=== PATIENT | female | born 1980 | race African-American/Black ===

== ENCOUNTER 2016-10-15 20:08 | Emergency (ER) | payer OTHER ==
[2016-10-15 20:15] VITALS: BP 119/63; PULSE 86; TEMP 97.2; BMI 29.2
[2016-10-15 20:34] LABS: BASOPHIL 0.7 % (0-2.0); EOSINOPHIL 1.3 % (0-4.5); MCH 25.4 pg (25.7-33.7); MCHC 32.1 g/dl (32.0-36.0); MEAN CELL VOLUME 79.3 fl (80-96); MEAN PLT VOLUME 9.3 fl (7.5-11.1); NEUTROPHILS 47.3 % (42.8-82.8); PLATELET COUNT 188 K/MM3 (134-434); RDW 15.6 % (11.6-15.6); WHITE BLOOD COUNT 5.2 K/mm3 (4.0-10.0)
--- NOTE | 2016-10-15 20:58 | PDOC ---
History of Present Illness - General History Source: Patient Exam Limitations: No Limitations - History of Present Illness Initial Comments: 10/15/16 20:58 The patient is a 36 year old female, A4, with a significant past medical history of hypotension and asthma , who presents to the ER with vaginal bleeding for one day and abdominal cramping for two days. Patient states she has been having crampy abdominal pain for the past two days. Patient noticed vaginal bleeding at 08:15. She reports the bleeding only occurs when she urinates and is not saturated. Patient says she passed a clot but did not notice any tissue. Patient states she was seen outside of the hospital today and had an ultrasound done that showed a questionable pole. Patient reports the noted gestational age on the ultrasound is about 8 weeks. Denies fever, chills, cough Denies nausea, vomiting, diarrhea Denies lightheadedness Denies weakness <Corine Padron - Last Filed: 10/15/16 23:50> - General History Source: Patient Exam Limitations: No Limitations <Macy Ivan - Last Filed: 10/15/16 23:54> - General Chief Complaint: Vaginal Bleeding Stated Complaint: VAGINAL BLEEDING Time Seen by Provider: 10/15/16 20:12 Past History <Corine Padorn - Last Filed: 10/15/16 23:50> - Psycho/Social/Smoking Cessation Hx Suicidal Ideation: No Smoking History: Never smoked Have you smoked in the past 12 months: No Information on smoking cessation initiated: No Hx Alcohol Use: No Drug/Substance Use Hx: No <Macy Ivan - Last Filed: 10/15/16 23:54> - Past Medical History Allergies/Adverse Reactions: Allergies Allergy/AdvReac Type Severity Reaction Status Date / Time No Known Allergies Allergy Verified 10/15/16 20:12 Home Medications: Ambulatory Orders NK [No Known Home Medication] 10/15/16 Review of Systems - Review of Systems Able to Perform ROS?: Yes Comments:: 10/15/16 20:59 GENERAL/CONSTITUTIONAL: No: fever, chills, weakness, loss of appetite. HEAD, EYES, EARS, NOSE AND THROAT: No: change in vision, ear pain, discharge, sore throat, throat swelling. CARDIOVASCULAR: No: chest pain, lightheadedness, palpitations, syncope RESPIRATORY: No: cough, shortness of breath, wheezing, hemoptysis, stridor. GASTROINTESTINAL: (+) abdominal cramping. No: nausea, vomiting, diarrhea, rectal bleeding, constipation. PELVIC: (+) vaginal bleeding GENITOURINARY: No: dysuria, hematuria, frequency, urgency, flank pain. MUSCULOSKELETAL: No: back pain, neck pain, joint pain, muscle swelling or pain SKIN AND BREASTS: No: lesions, pallor, rash or easy bruising. NEUROLOGIC: No: headache, vertigo, paresthesias, weakness ENDOCRINE: No: unexplained weight gain or loss HEMATOLOGIC/LYMPHATIC: No: anemia, easy bleeding, swelling nodes <Uts,Corine - Last Filed: 10/15/16 23:50> *Physical Exam - Vital Signs Last Vital Signs Temp Pulse Resp BP Pulse Ox 97.2 F L 86 20 119/63 98 10/15/16 20:10 10/15/16 20:10 10/15/16 20:10 10/15/16 20:10 10/15/16 20:10 - Physical Exam Comments: 10/15/16 20:59 GENERAL: The patient is in no acute distress. HEAD: Normal with no signs of trauma. EYES: PERRLA, EOMI, sclera anicteric, conjunctiva clear. ENT: Ears normal, nares patent, oropharynx clear without exudates. Moist mucous membranes. NECK: Normal range of motion, supple without lymphadenopathy, JVD, or masses. LUNGS: Breath sounds equal, clear to auscultation bilaterally. No wheezes, and no crackles. HEART:Regular rate and rhythm, normal S1 and S2 without murmur, rub or gallop. ABDOMEN: No lower abdominal tenderness. Soft, nontender, normoactive bowel sounds. No guarding, no rebound. EXTREMITIES: Normal range of motion, no edema. No clubbing or cyanosis. No erythema, or tenderness. NEUROLOGICAL: Cranial nerves II through XII grossly intact. Normal speech. No focal neurological deficits. MUSCULOSKELETAL: Back non-tender to palpation, no CVA tenderness SKIN: Warm, Dry, normal turgor, no rashes or lesions noted. Pelvic: no blood in the voult, os closed, no adnexal masses <Uts,Corine - Last Filed: 10/15/16 23:50> - Vital Signs Last Vital Signs Temp Pulse Resp BP Pulse Ox 97.2 F L 86 20 119/63 98 10/15/16 20:10 10/15/16 20:10 10/15/16 20:10 10/15/16 20:10 10/15/16 20:10 <Macy Ivan - Last Filed: 10/15/16 23:54> ED Treatment Course - LABORATORY CBC & Chemistry Diagram: 10/15/16 20:20 10/15/16 20:20 - ADDITIONAL ORDERS Additional order review: 10/15/16 20:20 RBC 4.07 MCV 79.3 L MCHC 32.1 RDW 15.6 MPV 9.3 Neutrophils % 47.3 Lymphocytes % 42.6 H Monocytes % 8.1 Eosinophils % 1.3 Basophils % 0.7 - RADIOLOGY Radiograph Interpretation: 10/15/16 23:50 Abdominal US impression reported by Dr. Alex Serrano MD: FINDINGS:The uterus measures 12.1 x 7.0 x 7.8 cm. There is a single intrauterine gestation. Estimated gestational age is 6 weeks and zero days. cardiac activity is documented at 110 beats per minute. Right ovary measures 3.4 x 2.0 x 1.8 cm. Doppler imaging demonstrates positive vascular flow. Left ovary measures 2.8 x 1.9 x 2.0 cm. Doppler imaging demonstrates positive vascular flow. IMPRESSION: Intrauterine gestation with positive heart activity <Uts,Corine - Last Filed: 10/15/16 23:50> - LABORATORY CBC & Chemistry Diagram: 10/15/16 20:20 10/15/16 20:20 - ADDITIONAL ORDERS Additional order review: 10/15/16 20:20 RBC 4.07 MCV 79.3 L MCHC 32.1 RDW 15.6 MPV 9.3 Neutrophils % 47.3 Lymphocytes % 42.6 H Monocytes % 8.1 Eosinophils % 1.3 Basophils % 0.7 - RADIOLOGY Radiology Studies Ordered: Category Date Time Status TRANSVAGINAL ULTRASOUND US [US] Stat Ultrasound 10/15/16 20:30 Ordered <Macy Ivan - Last Filed: 10/15/16 23:54> Medical Decision Making - Medical Decision Making 10/15/16 20:58 A portion of this note was documented by scribe services under my direction. I have reviewed the details of the note, within reason, and agree with the documentation with the following case summary and management plan written by me. Nursing documentation reviewed and incorporated into medical decision making This is a 36-year-old [id number] unsure of her last menstrual period. pt presents to the ER due to vaginal bleeding Pt states she was in her usual state of health until this morning when she noted vaginal bleeding No pads saturated She notes bleeding mostly when wiping She has had intermittent lower abdominal cramping for the past 2 days She was seen at an outside hospital where US done and was abnormal Currently: No lower abdominal tenderness on pelvic examination: No blood in the vault Os closed No adnexal masses 10/15/16 22:04 Laboratory Tests 10/15/16 10/15/16 10/15/16 20:20 20:20 20:45 WBC 5.2 Hgb 10.4 L Hct 32.3 L Plt Count 188 Neutrophils % 47.3 Lymphocytes % 42.6 H BUN 7 Creatinine 0.8 Beta HCG, Quant 5668.4 Urine Blood 1+ H Urine Nitrite Negative Ur Leukocyte Esterase Negative Urine RBC <1 Urine WBC 2 Will repeat US 10/15/16 22:48 Laboratory Tests 10/15/16 20:20 Blood Type O POSITIVE U/S: 10/15/16 23:52 Transvaginal ultrasound: Single intrauterine gestation, 6 weeks, 0 days. heart rate 110 bpm. Ovaries demonstrate positive vascular flow Will discharged home. Patient has a threatened miscarriage. Last patient follow up with gynecology/OB <Macy Ivan - Last Filed: 10/15/16 23:54> *DC/Admit/Observation/Transfer - Attestations Scribe Attestion: 10/15/16 20:59 Documentation prepared by Corine Padron, acting as electromedical equipment technician for Macy Ivan MD. <Corine Padron - Last Filed: 10/15/16 23:50> - Discharge Dispostion Admit: No <Macy Ivan - Last Filed: 10/15/16 23:54> Diagnosis at time of Disposition: Threatened - Discharge Dispostion Disposition: HOME Condition at time of disposition: Stable - Referrals Referrals: Andree Mccarty MD [Staff Physician] - - Patient Instructions Printed Discharge Instructions: DI for Threatened Additional Instructions: Please follow up with your [employer] Hostess within 2 days for repeat assessment, ultrasound, BHCG Please return to the ER with any other concerns or complaints, new symptoms, worsening symptoms. Please return to the ER with vaginal bleeding - saturating 2 pads per hour for 2 hours
[2016-10-15 21:00] LABS: URINE APPEARANCE CLEAR; URINE BILIRUBIN NEGATIVE (NEGATIVE); URINE COLOR YELLOW; URINE GLUCOSE (UA) NEGATIVE (NEGATIVE); URINE KETONE NEGATIVE (NEGATIVE); URINE LEUK ESTERASE NEGATIVE (NEGATIVE); URINE NITRITE NEGATIVE (NEGATIVE); URINE PROTEIN NEGATIVE (NEGATIVE); URINE UROBILINOGEN 4.0 E.U/dl E.U./dl (0.2-1.0)
[2016-10-15 21:03] LABS: ALBUMIN 3.5 g/dl (3.4-5.0); ANION GAP 8 (8-16); BILIRUBIN,TOTAL 0.5 mg/dL (0.2-1.0); CALCIUM 8.5 mg/dL (8.5-10.1); CO2 23 mmol/L (21-32); CREATININE 0.8 mg/dL (0.55-1.02); GLUCOSE,RANDOM 82 mg/dL (74-106); SGOT/AST 19 U/L (15-37); SGPT/ALT 17 U/L (12-78)
[2016-10-15 21:18] LABS: ALK PHOS 67 U/L (45-117); TOT PROT 7.2 g/dl (6.4-8.2)
[2016-10-15 22:00] LABS: URINE BLOOD 1+ (NEGATIVE)
[2016-10-15 22:02] LABS: URINE MUCUS FEW; URINE RBC <1 /hpf (0-3); URINE WBC 2 /hpf (3-5)
== END 2016-10-16 01:41 | disposition home or self-care (01) ==
LOC: JER 20:08
DX: O20.0 Threatened abortion (principal); Z3A.01 Less than 8 weeks gestation of pregnancy
CPT/HCPCS: 36415; 76830-TC; 80053; 81003; 81015; 84702; 85025; 86850; 86900; 86901; 99284-25

== ENCOUNTER 2016-10-18 14:52 | Day surgery (SDC) | payer OTHER ==
--- NOTE | 2016-10-18 15:07 | PDOC ---
History of Present Illness - General Stated Complaint: Vaginal Bleeding History Source: Patient Exam Limitations: No Limitations - History of Present Illness Initial Comments: 10/18/16 15:10 The patient is a 36 year old female, A4, 6 w , with a PMH of hypotension and asthma, who was in ED for threatened 2 d ago, who now presents s/p passing products of conception at 1 pm. She brought the contents with her. She never stopped having cramping pelvic pain this afternoon at 1 pm she passed what looked to her like products of conception. She has since been bleeding heavily. In Ed she passed a large clump of placenta or blood clot. She states her pain alleviated a little after that episode. She denies n/a, f/c, h/a, dizziness, loc, chest pain, sob, diarrhea, constipation, dysuria. 10/18/16 16:18 10/18/16 16:34 Past History - Past Medical History Allergies/Adverse Reactions: Allergies Allergy/AdvReac Type Severity Reaction Status Date / Time No Known Allergies Allergy Verified 10/18/16 15:08 Home Medications: Ambulatory Orders NK [No Known Home Medication] 10/15/16 - Reproductive History (#): 6 Para: 1 Therapeutic (s) & number: Yes (3) Spontaneous : 1 - Immunization History Immunization Up to Date: Yes - Psycho/Social/Smoking Cessation Hx Suicidal Ideation: No Smoking History: Never smoked Have you smoked in the past 12 months: No Hx Alcohol Use: No Drug/Substance Use Hx: No Review of Systems - Review of Systems Able to Perform ROS?: Yes Is the patient limited Vincentian proficient: No Constitutional: No: Chills, Fever HEENTM: No: Double Vision, Nose Congestion, Throat Pain Respiratory: No: Cough, Orthopnea, Shortness of Breath, Hemoptysis ABD/GI: Yes: Abdominal cramping. No: Abdominal Distended, Constipated, Diarrhea , Nausea, Vomiting : No: Dysuria, Flank Pain Musculoskeletal: No: Back Pain, Muscle Weakness Integumentary: No: Pruritus, Rash Neurological: No: Headache, Numbness, Paresthesia Psychiatric: No: Anxiety, Depression Endocrine: No: Excessive Sweating, Change in Weight Hematologic/Lymphatic: No: Anemia, Blood Clots, Easy Bleeding, Easy Bruising All Other Systems: Reviewed and Negative *Physical Exam - Physical Exam Comments: 10/18/16 15:59 General: NAD AAOx3 HEENT:PERRLA EOMI, sclera anicteric, conjunctiva clear CV: RRR S1S2 Pulm: CTA b/l GI: obese, soft, moderately tender pelvic area, nondistended, normoactive bowel sounds. no CVA tenderness Pelvic: open vaginal os, bleeding moderate amount, mildly tender uterus. Neuro: CN II-XII grossly intact Musculoskeletal: no peripheral edema or calf tenderness 10/18/16 16:39 ED Treatment Course - LABORATORY CBC & Chemistry Diagram: 10/18/16 15:55 Medical Decision Making - Medical Decision Making 10/18/16 16:40 Patient presents with clinical picture most consistent with , complete vs incomplete. COnsern for hemorrhage if heavy bleeding persists. cbc, Beta HCG, transvaginal US, oxycodone. 10/18/16 16:41 10/18/16 16:41 10/18/16 16:42 10/18/16 17:50 Hgb stable at 10.4 from several days ago. transavinal US nonspecific heterogenous material in uterus representing either clotted blood or products of conception 10/18/16 18:28 Will contact annette JUSTICE possibility *DC/Admit/Observation/Transfer Diagnosis at time of Disposition: Incomplete with delayed or excessive hemorrhage
[2016-10-18 15:11] VITALS: BMI 38.9
[2016-10-18] MEDS ORDERED: oxyCODONE HCL 5 MG TABLET PO ONE (15:21)
--- NOTE | 2016-10-18 15:53 | PDOC ---
Attending Attestation - Resident Resident Name: Maria De JesusChristiana - ED Attending Attestation I have performed the following: I have examined & evaluated the patient, The case was reviewed & discussed with the resident, I agree w/resident's findings & plan - HPI HPI: 10/18/16 15:52 36y F hx of A4 presents with complaint of vag bleeding and cramping. Pt notes she was here 2 days ago and dx with threatened ab, had US showing IUP. pt has bene passing clots, possible tissue prior to arrival endorses crmapy abd pain. exa,m noted for moderate bleeding and open os. exam otherwise as documented by resident suspect impending vs. complete ab products of conception sent to path will obtain beta and pelvic US to determine ?retained products 10/18/16 18:59 case signed out to dr. Upton for disposition awaiting labs/US - Physicial Exam PE: 10/20/16 09:14 see above - Medical Decision Making 10/20/16 09:14 see above
[2016-10-18] MEDS ORDERED: oxyCODONE HCL 5 MG TABLET ONE (16:03)
[2016-10-18 16:55] LABS: BASOPHIL 0.7 % (0-2.0); EOSINOPHIL 1.4 % (0-4.5); MCH 25.7 pg (25.7-33.7); MCHC 32.8 g/dl (32.0-36.0); MEAN CELL VOLUME 78.4 fl (80-96); MEAN PLT VOLUME 9.7 fl (7.5-11.1); NEUTROPHILS 53.1 % (42.8-82.8); PLATELET COUNT 190 K/MM3 (134-434); RDW 15.9 % (11.6-15.6); WHITE BLOOD COUNT 4.5 K/mm3 (4.0-10.0)
[2016-10-18 18:04] LABS: PLATELET ESTIMATE ADEQUATE (NORMAL)
--- NOTE | 2016-10-18 21:24 | PDOC ---
*Physical Exam - Vital Signs Last Vital Signs Temp Pulse Resp BP Pulse Ox 98.1 F 70 18 110/60 99 10/18/16 15:09 10/18/16 18:39 10/18/16 18:39 10/18/16 18:39 10/18/16 19:26 ED Treatment Course - LABORATORY CBC & Chemistry Diagram: 10/18/16 15:55 - ADDITIONAL ORDERS Additional order review: Laboratory Results 10/18/16 15:55 Beta HCG, Quant 2638.8 10/18/16 15:55 RBC 4.04 MCV 78.4 L MCHC 32.8 RDW 15.9 H MPV 9.7 Neutrophils % 53.1 Lymphocytes % 37.6 Monocytes % 7.2 Eosinophils % 1.4 Basophils % 0.7 - Medications Given in the ED: ED Medications Discontinued Medications Generic Name Dose Route Start Last Admin Trade Name Freq PRN Reason Stop Dose Admin Oxycodone HCl 10 mg 10/18/16 15:21 10/18/16 16:06 Roxicodone - PO 10/18/16 15:22 10 mg ONCE ONE Administration Medical Decision Making - Medical Decision Making 10/18/16 19:03 Care assumed fully by this magazine writer at shift change. Patient awaiting mobility engineer evaluation. 10/19/16 21:25 Case d/w Dr. Sears. Patient has arranged for childcare, therefore she will go forward with D&C. Awaiting transpport to OR. *DC/Admit/Observation/Transfer Diagnosis at time of Disposition: , incomplete with hemorrhage - Discharge Dispostion Condition at time of disposition: Good Admit: Yes
--- NOTE | 2016-10-18 22:33 | HP ---
Admitting History and Physical - Admission Chief Complaint: Vaginal bleeding History of Present Illness: 36 yo , presents c/o vaginal bleeding. She had a gestation of 6 weeks and admits to passing some product of conception at home. History Source: Patient Limitations to Obtaining History: No Limitations - Past Medical History ...: Yes (miscarriage) ...: 2 ...Para: 1 - Past Surgical History Past Surgical History: Yes: None - Smoking History Smoking history: Never smoked Have you smoked in the past 12 months: No - Alcohol/Substance Use Hx Alcohol Use: No - Social History Usual Living Arrangement: Yes: With Child History of Recent Travel: No Home Medications - Allergies Allergies/Adverse Reactions: Allergies Allergy/AdvReac Type Severity Reaction Status Date / Time No Known Allergies Allergy Verified 10/18/16 20:19 - Home Medications Home Medications: Ambulatory Orders Albuterol Sulfate [Proventil HFA Inhaler -] 1 - 2 inh PO PRN PRN 10/18/16 Family Disease History - Family Disease History Family History: Unremarkable Review of Systems - Review of Systems Constitutional: reports: No Symptoms Eyes: reports: No Symptoms HENT: reports: No Symptoms Neck: reports: No Symptoms Cardiovascular: reports: No Symptoms Respiratory: reports: No Symptoms Gastrointestinal: reports: No Symptoms Genitourinary: reports: Vaginal Bleeding Breasts: reports: No Symptoms Reported Neurological: reports: No Symptoms Endocrine: reports: No Symptoms Hematology/Lymphatic: reports: No Symptoms Psychiatric: reports: No Symptoms Pain Intensity: 3 Physical Examination Vital Signs: Vital Signs Temperature 98.1 F 10/18/16 15:09 Pulse Rate 70 10/18/16 18:39 Respiratory Rate 18 10/18/16 18:39 Blood Pressure 110/60 10/18/16 18:39 O2 Sat by Pulse Oximetry (%) 99 10/18/16 19:26 Constitutional: Yes: Well Nourished Eyes: Yes: Conjunctiva Clear HENT: Yes: Atraumatic Neck: Yes: Supple Cardiovascular: Yes: Regular Rate and Rhythm Respiratory: Yes: Regular, CTA Bilaterally Gastrointestinal: Yes: Normal Bowel Sounds Musculoskeletal: Yes: WNL Extremities: Yes: WNL Integumentary: Yes: WNL Wound/Incision: Yes: Well Approximated Neurological: Yes: Alert, Oriented ...Motor Strength: WNL Psychiatric: Yes: Alert, Oriented Labs: CBC, BMP 10/18/16 15:55 Assessment/Plan Incomplete Pre op for suction D&C Consent signed
--- NOTE | 2016-10-18 22:40 | PN ---
Progress Note (short form) - Note Progress Note: ANESTHESIOLOGY Pt brought to PACU for D&C. Pt has been experiencing vaginal bleeding x 3 days, is hemodynamically stable and denies any other symptoms. Pt ate dinner in ED at 20:30. Discussed with Dr. Ziegler patient is not NPO, case in non-emergent and case can be done at 04:30 after an NPO period of [address] Sears will proceed under local anesthesia only.
[2016-10-18] MEDS ORDERED: BUPIVACAINE HCL/PF 0.5% (5MG/ML) 10 ML VIAL IJ ONE (22:47)
--- NOTE | 2016-10-18 23:00 | OP ---
Operative Note - Note: Operative Date: 10/18/16 Pre-Operative Diagnosis: Incomplete Operation: Suction D&C Findings: Product of conception Post-Operative Diagnosis: Same as Pre-op Surgeon: Katalina Sears Anesthesia: Local Specimens Removed: Product of conception Estimated Blood Loss (mls): 20 Operative Report Dictated: Yes
--- NOTE | 2016-10-19 06:35 | OP ---
DATE OF OPERATION: 10/18/2016 PREOPERATIVE DIAGNOSIS: Incomplete . POSTOPERATIVE DIAGNOSIS: Incomplete . PROCEDURE: Suction dilatation and curettage. SURGEON: Katalina Sears MD ANESTHESIA: Local. COMPLICATIONS: None. ESTIMATED BLOOD LOSS: 20 mL. DESCRIPTION OF PROCEDURE: Patient was taken to the operating room, where a cervical block was performed. Patient was placed in lithotomy position. She was then prepped and draped in proper sterile fashion. Then, 10 mL of 0.5 bupivacaine was used for cervical block, and a weighted speculum was placed in the vagina. The anterior lip of the cervix was grasped with a single-tooth tenaculum. Then, the 7-mm suction curette was then gently introduced into the uterine cavity. The suction device was then activated. An EndoCurette rotated to clear the uterus of all products of conception. A sharp curettage was performed, and the curette was reintroduced to clear the uterus of all remaining products of conception. Then, the instruments were removed. The patient was taken out of lithotomy position. She was taken to PACU in stable condition. PATHOLOGY: Products of conception. Alvaro [id number]
[2016-10-19 08:09] VITALS: BP 122/66; PULSE 84; TEMP 98.8
--- NOTE | 2016-10-19 11:05 | EKG ---
Test Reason : Blood Pressure : / mmHG Vent. Rate : 085 BPM Atrial Rate : 085 BPM P-R Int : 146 ms QRS Dur : 080 ms QT Int : 372 ms P-R-T Axes : 046 015 012 degrees QTc Int : 442 ms NORMAL SINUS RHYTHM NORMAL ECG NO PREVIOUS ECGS AVAILABLE Confirmed by EMELY BERRY MD ([id number]) on 10/19/2016 11:04:52 AM Referred By: Confirmed By:EMELY BERRY MD
--- NOTE | 2016-10-20 13:34 | PATH ---
Surgical Pathology Report Patient Name: RAVIN WILLIAMSON Med. Rec. #: [id number] /Age/Gender: 1980 (Age: 36) / F Account: [id number] Location: AMBULATORY SURG Taken: 10/18/2016 Received: 10/19/2016 Reported: 10/20/2016 Physicians: Katalina Sears M.D. Specimen(s) Received A: PRODUCTS OF CONCEPTION B: PRODUCTS OF CONCEPTION Clinical History Incomplete at 1 PM, was here for threatened 2 days ago 6 weeks Final Diagnosis A. UTERINE CONTENTS, EVACUATION: CHORIONIC VILLI CONSISTENT WITH PRODUCTS OF CONCEPTION, AND PORTIONS OF DECIDUA. B. UTERINE CONTENTS, EVACUATION: HYPERSECRETORY ENDOMETRIUM AND CLOTTED BLOOD Comment: Recommend correlation with clinical findings and follow up as clinically indicated. Electronically Signed Juan Hernández M.D. Gross Description A. Received fresh labeled with the patient's name and indicated on the requisition to be products of conception, is a 12.5 x 7.5 x 2.0 cm aggregate of red-brown blood clot admixed with soft tissue fragments. Villous tissue is identified. No somatic tissue is identified. A manufacturers representative portion is submitted in one cassette. B. Received in formalin labeled "products of conception," is a 5.0 x 4.0 x 0.9 cm aggregate of najera-brown soft tissue fragments. No definite villous tissue or somatic tissues identified. A manufacturers representative portion is submitted in one cassette. /10/19/2016 saudi/10/19/2016
== END 2016-10-19 09:15 | disposition home or self-care (01) ==
LOC: JER 14:52 → JASUSAT 21:24 → JERBED 21:24 → UNDOADMIN 21:24 → JERBED 21:24 → JER 21:24 → J7W 23:00 → JASUSAT 10-19 09:15
PROVIDERS: ATTEND Obstetrics & Gynecology
PROC: 10D17ZZ Extraction of Products of Conception, Retained, Via Natural or Artificial Opening (ICD-10-PCS; principal; 2016-10-18 22:00)
DX: O03.4 Incomplete spontaneous abortion without complication (principal)
CPT/HCPCS: 36415; 76817-TC; 84702; 85025; 88305-TC; 93005; 93010; 99284-25